=== PATIENT | male | born 1955 | race Caucasian/White ===

== ENCOUNTER 2017-09-08 12:49 | Inpatient (IN) ==
[2017-09-08] MEDS ORDERED: 0.9 % Sodium Chloride 1,000 ML IVC ONE (13:31)
[2017-09-08] MEDS ORDERED: Prochlorperazine 10 MG/2 ML VIAL IVP ONE (13:39)
--- NOTE | 2017-09-08 13:44 | Emergency Department Note ---
Disposition Clinical Impression: Generalized weakness Pneumonia Qualifiers: Pneumonia type: due to unspecified organism Laterality: left Lung location: lower lobe of lung Qualified Code(s): J18.1 - Lobar pneumonia, unspecified organism Headache Qualifiers: Headache type: unspecified Headache chronicity pattern: acute headache Intractability: not intractable Qualified Code(s): R51 - Headache Disposition: Admitted As Inpatient Condition: Good Time of Disposition: 15:53 General Adult HPI - General Chief complaint: ED Headache Stated complaint: headache, bodyaches & cramps, no energy, sob Time Seen by Provider: 09/08/17 13:05 Source: patient Limitations: no limitations Nursing Notes Reviewed: Yes Vital Signs Reviewed: Yes - History of Present Illness HPI Narrative: Patient is a 62-year-old male that presents the emergency department with a headache that is been ongoing for the past 2 weeks. Patient and family states that he has not been acting appropriately and has been mixing up his words, his speech has been different in the setting mild facial droop on the right. Patient does state that he has a history of headaches and migraines however this feels different due to the headache lasting longer than normal. The patient did try taking Tylenol for his headache but this provided minimal relief. The patient does state that he had some sort of rash or viral illness on his neck which she was prescribed an unknown medication for. He states that this has cleared up and he is still had a persistent headache. Pain Scale: 10 - Related Data Home Medications Medication Instructions Recorded Confirmed Ivermectin [Stromectol] 3 mg PO AD 09/08/17 09/08/17 Phenytoin ER [Dilantin ER] 200 mg PO BID 09/08/17 09/08/17 Allergies Allergy/AdvReac Type Severity Reaction Status Date / Time sertraline [From Zoloft] Allergy Swelling Verified 09/08/17 16:24 of the Eye All systems ED: reviewed and negative except as stated. Cardiovascular: Denies: chest pain Respiratory: Reports: dyspnea Gastrointestinal: Reports: other (distention). Denies: abdominal pain, nausea, vomiting Genitourinary: Reports: dysuria, other (dark colored urine with an odor). Denies: urgency Past Medical History - Past Medical History Medical history: Reports: seizures Psychiatric history: Reports: depression - Social History Smoking Status: Current every day smoker Smokeless Tobacco Status: No Alcohol use: Reports: none Drug use: Reports: marijuana Physical Exam - General Limitations: no limitations General appearance: alert, in no apparent distress - Head Head exam: atraumatic, normocephalic - Eye Eye exam: Present: normal appearance, EOMI - Neck Neck exam: Present: normal inspection. Absent: full ROM, trachea midline - Respiratory Respiratory exam: Present: normal lung sounds bilaterally. Absent: respiratory distress, wheezes - Cardiovascular Cardiovascular exam: Present: normal rhythm, tachycardia, normal heart sounds, + S1, +S2 - Abdominal Exam Abdominal exam: Present: soft, Non-Tender, distention (mildly), normal bowel sounds - Neurological Exam Neurological exam: Present: alert, oriented X3 - Expanded Neurological Exam Patient oriented to: Present: person, place, time Cranial nerves: EOM function (II, III, IV, ): Normal, facial sensation (V): Normal, facial palsy (VII): Abnormal Right (mild facial drop on the right), gag reflex (IX): Normal, spinal accessory function (XI): Normal, tongue deviation ( XII): Normal Cerebellar function: finger to nose: Normal, heel to godinez: Normal Motor strength - LUE: 5/5 Motor strength - RUE: 5/5 Motor strength - LLE: 5/5 Motor strength - RLE: 5/5 Upper motor neuron exam: pronator drift: Absent bilaterally Sensory exam upper extremity: light touch: Normal Sensory exam lower extremity: light touch: Normal Coma Scale Eye Opening: Spontaneous Coma Scale Motor Response: Obeys Commands Coma Scale Verbal Response: Oriented Coma Scale Total: 15 - Psychiatric Psychiatric exam: Present: normal affect, normal mood - Skin Skin exam: Present: warm, dry, intact Course Vital Signs Temperature 98.9 F 09/08/17 12:51 Pulse Rate 103 09/08/17 12:51 Respiratory Rate 20 09/08/17 12:51 Blood Pressure 142/87 09/08/17 12:51 O2 Sat by Pulse Oximetry 92 09/08/17 12:51 Temperature 99.5 F 09/08/17 15:59 Pulse Rate 91 09/08/17 14:42 Respiratory Rate 18 09/08/17 15:59 Blood Pressure 152/90 09/08/17 15:59 O2 Sat by Pulse Oximetry 93 09/08/17 14:42 Oxygen Delivery Oxygen Delivery Room Air Medical Decision Making - MDM Narrative Medical decision making narrative: Due the patient presenting with ongoing headache and reports of not acting appropriately and had some mild confusion the family and having associated right -sided facial droop we will obtain a CT of the head as well as laboratory testing. CT the head was unremarkable for acute findings. The patient did have a left lower lobe pneumonia that was seen on chest x-ray. Due to the pneumonia we will treat this patient with Rocephin and azithromycin due to the patient being from home and likely community acquired pneumonia. The patient did have a low sodium of 129. Patient will be given normal saline I do not feel that there is necessity to replace the sodium any further at this time. Urinalysis did not show any evidence of infection at this time. Based on the pneumonia in the patient's symptoms and feel that it is necessary for the patient be admitted to the hospital. I spoke with the hospitalist and he is accepted the patient to their service. The patient will be admitted to the hospital at this time for further evaluation and management. - Lab Data Lab results reviewed: Yes I reviewed the patient's lab results. Result diagrams: 09/08/17 14:06 09/08/17 14:06 Lab Results 09/08/17 09/08/17 09/08/17 Range/Units 13:55 14:06 14:06 WBC 9.5 (4.3-11.1) K/mcL RBC 4.37 (4.19-5.50) M/mcL Hgb 14.2 (12.9-16.9) g/dL Hct 40.6 (37.5-50.1) % MCV 92.9 (83.0-100.0) fL MCH 32.5 (28.0-33.3) pg MCHC 35.0 (31.6-35.5) g/dL RDW 12.2 (11.5-14.5) % Plt Count 322 (140-400) K/mcL MPV 9.0 L (9.4-12.4) fL Immature Gran % 0.8 (0-4) % Seg Neutrophils % 69.9 % Lymphocytes % 14.8 % Monocytes % 13.1 % Eosinophils % 1.0 % Basophils % 0.4 % Neutrophils # 6.6 (1.6-8.9) K/mcL Lymphocytes # 1.4 (0.6-4.6) K/mcL Monocytes # 1.2 (0.0-1.3) K/mcL Eosinophils # 0.1 (0.0-0.6) K/mcL Basophils # 0.0 (0.0-0.2) K/mcL PT 12.8 H (9.4-12.1) Seconds INR 1.2 Sodium (136-145) mEq/L Potassium (3.5-5.1) mEq/L Chloride (98-107) mEq/L Carbon Dioxide (23-29) mEq/L BUN (8-23) mg/dL Creatinine (0.70-1.30) mg/dL Est GFR ( Amer) (> 60) Est GFR (Non-Af Amer) (> 60) BUN/Creatinine Ratio (6-26) Glucose (70-105) mg/dL Calculated Osmolality (280-300) Calcium (8.6-10.3) mg/dL Total Bilirubin (0.3-1.0) mg/dL Direct Bilirubin (0.0-0.2) mg/dL Indirect Bilirubin (0.0-1.2) mg/dL AST (13-39) Units/L ALT (7-52) Units/L Alkaline Phosphatase (34-104) Units/L Ammonia (16-53) mcmol/L Troponin I (< 0.04) ng/mL Serum Total Protein (6.4-8.9) g/dL Albumin (3.5-5.7) g/dL Globulin (2.4-3.5) g/dL Albumin/Globulin Ratio (1.1-2.2) Urine Color Dark Yellow (Yellow) Urine Clarity Cloudy A (Clear) Urine pH 6.0 (5.0-8.0) pH Units Ur Specific Bigfoot 1.025 (1.010-1.025) Urine Protein 30 H (Neg-Trace) mg/dL Urine Glucose (UA) Normal (Normal) mg/dL Urine Ketones Negative (Negative) mg/dL Urine Blood Trace H (Negative) Urine Nitrite Negative (Negative) Urine Bilirubin Small H (Negative) Urine Urobilinogen Normal (Normal) mg/dL Ur Leukocyte Esterase Negative (Negative) Urine Microscopic RBC 0-3 (0-3) per hpf Urine Microscopic WBC 0-3 (0-3) per hpf Ur Squamous Epith Cells None Seen (None-Few) per lpf Urine Bacteria None Seen (None-Few) per hpf Hyaline Casts None Seen (None-Few) per lpf Ur Culture Indicated? NO (NO) 09/08/17 09/08/17 09/08/17 Range/Units 14:06 14:06 14:06 WBC (4.3-11.1) K/mcL RBC (4.19-5.50) M/mcL Hgb (12.9-16.9) g/dL Hct (37.5-50.1) % MCV (83.0-100.0) fL MCH (28.0-33.3) pg MCHC (31.6-35.5) g/dL RDW (11.5-14.5) % Plt Count (140-400) K/mcL MPV (9.4-12.4) fL Immature Gran % (0-4) % Seg Neutrophils % % Lymphocytes % % Monocytes % % Eosinophils % % Basophils % % Neutrophils # (1.6-8.9) K/mcL Lymphocytes # (0.6-4.6) K/mcL Monocytes # (0.0-1.3) K/mcL Eosinophils # (0.0-0.6) K/mcL Basophils # (0.0-0.2) K/mcL PT (9.4-12.1) Seconds INR Sodium 129 L (136-145) mEq/L Potassium 3.5 (3.5-5.1) mEq/L Chloride 96 L (98-107) mEq/L Carbon Dioxide 24 (23-29) mEq/L BUN 9 (8-23) mg/dL Creatinine 0.60 L (0.70-1.30) mg/dL Est GFR ( Amer) > 60 (> 60) Est GFR (Non-Af Amer) > 60 (> 60) BUN/Creatinine Ratio 15 (6-26) Glucose 114 H (70-105) mg/dL Calculated Osmolality 268 L (280-300) Calcium 8.7 (8.6-10.3) mg/dL Total Bilirubin 0.6 (0.3-1.0) mg/dL Direct Bilirubin 0.2 (0.0-0.2) mg/dL Indirect Bilirubin 0.4 (0.0-1.2) mg/dL AST 86 H (13-39) Units/L ALT 81 H (7-52) Units/L Alkaline Phosphatase 81 (34-104) Units/L Ammonia (16-53) mcmol/L Troponin I < 0.03 (< 0.04) ng/mL Serum Total Protein 7.2 (6.4-8.9) g/dL Albumin 3.6 (3.5-5.7) g/dL Globulin 3.6 H (2.4-3.5) g/dL Albumin/Globulin Ratio 1.0 L (1.1-2.2) Urine Color (Yellow) Urine Clarity (Clear) Urine pH (5.0-8.0) pH Units Ur Specific Bigfoot (1.010-1.025) Urine Protein (Neg-Trace) mg/dL Urine Glucose (UA) (Normal) mg/dL Urine Ketones (Negative) mg/dL Urine Blood (Negative) Urine Nitrite (Negative) Urine Bilirubin (Negative) Urine Urobilinogen (Normal) mg/dL Ur Leukocyte Esterase (Negative) Urine Microscopic RBC (0-3) per hpf Urine Microscopic WBC (0-3) per hpf Ur Squamous Epith Cells (None-Few) per lpf Urine Bacteria (None-Few) per hpf Hyaline Casts (None-Few) per lpf Ur Culture Indicated? (NO) 09/08/17 Range/Units 14:06 WBC (4.3-11.1) K/mcL RBC (4.19-5.50) M/mcL Hgb (12.9-16.9) g/dL Hct (37.5-50.1) % MCV (83.0-100.0) fL MCH (28.0-33.3) pg MCHC (31.6-35.5) g/dL RDW (11.5-14.5) % Plt Count (140-400) K/mcL MPV (9.4-12.4) fL Immature Gran % (0-4) % Seg Neutrophils % % Lymphocytes % % Monocytes % % Eosinophils % % Basophils % % Neutrophils # (1.6-8.9) K/mcL Lymphocytes # (0.6-4.6) K/mcL Monocytes # (0.0-1.3) K/mcL Eosinophils # (0.0-0.6) K/mcL Basophils # (0.0-0.2) K/mcL PT (9.4-12.1) Seconds INR Sodium (136-145) mEq/L Potassium (3.5-5.1) mEq/L Chloride (98-107) mEq/L Carbon Dioxide (23-29) mEq/L BUN (8-23) mg/dL Creatinine (0.70-1.30) mg/dL Est GFR ( Amer) (> 60) Est GFR (Non-Af Amer) (> 60) BUN/Creatinine Ratio (6-26) Glucose (70-105) mg/dL Calculated Osmolality (280-300) Calcium (8.6-10.3) mg/dL Total Bilirubin (0.3-1.0) mg/dL Direct Bilirubin (0.0-0.2) mg/dL Indirect Bilirubin (0.0-1.2) mg/dL AST (13-39) Units/L ALT (7-52) Units/L Alkaline Phosphatase (34-104) Units/L Ammonia 59 H (16-53) mcmol/L Troponin I (< 0.04) ng/mL Serum Total Protein (6.4-8.9) g/dL Albumin (3.5-5.7) g/dL Globulin (2.4-3.5) g/dL Albumin/Globulin Ratio (1.1-2.2) Urine Color (Yellow) Urine Clarity (Clear) Urine pH (5.0-8.0) pH Units Ur Specific Bigfoot (1.010-1.025) Urine Protein (Neg-Trace) mg/dL Urine Glucose (UA) (Normal) mg/dL Urine Ketones (Negative) mg/dL Urine Blood (Negative) Urine Nitrite (Negative) Urine Bilirubin (Negative) Urine Urobilinogen (Normal) mg/dL Ur Leukocyte Esterase (Negative) Urine Microscopic RBC (0-3) per hpf Urine Microscopic WBC (0-3) per hpf Ur Squamous Epith Cells (None-Few) per lpf Urine Bacteria (None-Few) per hpf Hyaline Casts (None-Few) per lpf Ur Culture Indicated? (NO) - Radiology Data Radiology results reviewed: Yes I reviewed the patient's radiology results. Head CT 09/08/17 13:37 IMPRESSION: No acute intracranial abnormality. D/ / Martinez Eckert MD / Martinez Eckert MD Interpreting Provider: Martinez Eckert MD Chest X-Ray 09/08/17 13:40 IMPRESSION: Left lower lobe pneumonia. D/ / 09/08/2017 14:36:28 Brandyn Ram MD / Ligia Neumann Interpreting Provider: Brandyn Ram MD - EKG Data EKG #1 EKG attestation: Yes I reviewed and interpreted this EKG. EKG results narrative: EKG showed a sinus rhythm at a rate of 91 bpm, SC interval of 115, qrs duration of 105, QTC of 415. No evidence of STEMI on EKG.
[2017-09-08 14:07] LABS: Bilirubin,Urine Small (Negative); Blood,Urine Trace (Negative); Clarity,Urine Cloudy (Clear); Color,Urine Dark Yellow (Yellow); Glucose,Urine (UA) Normal (Normal); Ketones,Urine Negative (Negative); Leukocyte Esterase,Urine Negative (Negative); Nitrite,Urine Negative (Negative); Protein,Urine 30 mg/dL (Neg-Trace); Specific Gravity,Urine 1.025 (1.010-1.025); Urobilinogen,Urine Normal (Normal)
[2017-09-08 14:10] LABS: Bacteria,Urine None Seen per hpf (None-Few); Hyaline Casts,Urine None Seen per lpf (None-Few); RBC,Urine 0-3 per hpf (0-3); Squamous Epithelial Cell,Urine None Seen per lpf (None-Few); WBC,Urine 0-3 per hpf (0-3)
[2017-09-08 14:18] LABS: Basophils % 0.4 %; Eosinophils # 0.1 K/mcL (0.0-0.6); Hematocrit 40.6 % (37.5-50.1); Hemoglobin 14.2 g/dL (12.9-16.9); Immature Granulocytes % 0.8 % (0-4); Lymphocytes # 1.4 K/mcL (0.6-4.6); Lymphocytes % 14.8 %; Mean Corpuscular Hemoglobin 32.5 pg (28.0-33.3); Mean Corpuscular Volume 92.9 fL (83.0-100.0); Monocytes # 1.2 K/mcL (0.0-1.3); Monocytes % 13.1 %; Neutrophils # 6.6 K/mcL (1.6-8.9); Platelet Count 322 K/mcL (140-400); Red Blood Count 4.37 M/mcL (4.19-5.50); Red Cell Distribution Width 12.2 % (11.5-14.5); Segmented Neutrophils % 69.9 %
[2017-09-08 14:23] LABS: INR 1.2; Prothrombin Time 12.8 Seconds (9.4-12.1)
[2017-09-08 14:37] LABS: Albumin 3.6 g/dL (3.5-5.7); BUN/Creatinine Ratio 15 (6-26); Bilirubin,Direct 0.2 mg/dL (0.0-0.2); Bilirubin,Indirect 0.4 mg/dL (0.0-1.2); Bilirubin,Total 0.6 mg/dL (0.3-1.0); Blood Urea Nitrogen 9 mg/dL (8-23); Calcium 8.7 mg/dL (8.6-10.3); Carbon Dioxide 24 mEq/L (23-29); Chloride 96 mEq/L (98-107); Globulin 3.6 g/dL (2.4-3.5); Glucose 114 mg/dL (70-105); Osmolality,Calculated 268 (280-300); Potassium 3.5 mEq/L (3.5-5.1); Sodium 129 mEq/L (136-145); Total Protein 7.2 g/dL (6.4-8.9); eGFR For African Americans > 60 (> 60); eGFR For Non-African Americans > 60 (> 60)
[2017-09-08] MEDS ORDERED: Azithromycin 500 MG in D5% in Water 250 ML IVPB ONE (15:07)
[2017-09-08] MEDS ORDERED: cefTRIAXone 1,000 MG in Water for inj. (sterile) 20 ML 10 ML IVP ONE (15:07)
[2017-09-08] MEDS ORDERED: Naloxone 0.4 MG/ML INJ IVP PRN (17:27)
--- NOTE | 2017-09-08 17:50 | Internal Med History&Physical ---
Date of Encounter: 09/08/17 Time of Encounter: 17:44 Internal Medicine - H&P: HPI Chief complaint: Headache Admitted From: Home Plans for Post Hospital Care: Home History of present illness: Mr. Engel is a 62 year old male with history of upper back pain, who presents with a headache for the past 2 weeks. Patient indicated he took Tylenol at home which was not effective. He also noted some weakness in his extremities, while ambulating. Facial droop noted to the right side of mouth. During neuro assessment patient strength was equal. He reported that he had a viral illness and had a rash on his neck several weeks ago was treated for a parasitic infection. He also indicated he was also having muscle aches but denied fever. Daughter in the room indicated that he had also complained of shortness of breath, the patient indicated he stopped smoking about one and half years ago. Denies any COPD diagnosis. No coughing or congestion reported. Patient hypertensive at 142/87. White blood cell count is 9.5. Sodium is 129 and will begin IV 0.9% normal saline continuous for hyponatremia likely related to dehydration. MRI ordered for tonight, neuro checks every shift. Patient was started on azithromycin and Rocephin IV. Past Med Surg Social Fam HX - Past Medical History Medical history: seizures Psychiatric history: depression - Social History Smoking Status: Current every day smoker Smokeless Tobacco Status: No Alcohol use: none Drug use: marijuana - Family History Mother Hx Family Cardiac Disorders: Yes (stroke) Internal Medicine - H&P: Meds Ivermectin [Stromectol] 3 mg PO AD 09/08/17 [History] Phenytoin ER [Dilantin ER] 200 mg PO BID 09/08/17 [History] 3 Allergy/AdvReac Type Severity Reaction Status Date / Time sertraline [From Zoloft] Allergy Swelling Verified 09/08/17 16:24 of the [facility] Systems PM: A 10-system review of systems was performed and is negative for pertinent findings except as documented above in the HPI. - Constitutional Constitutional: weakness, no chills, no fever(s), no night sweats - EENT Eyes: no change in vision, no discharge, no pain, no photophobia Ears: no ear discharge, no ear pain, no tinnitus Nose, mouth and throat: neck pain (Recent neck infection for a parasitic infection), no dysphagia, no nasal discharge, no sore throat - Cardiovascular Cardiovascular ROS IM: dyspnea, no chest pain, no diaphoresis, no lightheadedness, no palpitations, no syncope - Respiratory Respiratory: no cough, no dyspnea, no wheezing, no excessive phlegm production - Gastrointestinal Gastrointestinal: no abdominal pain, no diarrhea, no hematemesis, no hematochezia, no melena, no nausea, no vomiting - Musculoskeletal Musculoskeletal ROS IM: no numbness, no tingling - Integumentary Integumentary IM: no rash, no unusual bruising - Neurological Neurological ROS: abnormal gait, confusion, weakness, no convulsions, no focal weakness, no numbness, no tingling, no tremor(s) - Hematologic/Lymphatic Hematologic/Lymphatic: no easy bruising - Constitutional Vitals: Temp Pulse Resp BP Pulse Ox 98.9 F 102 16 146/83 96 09/08/17 17:35 09/08/17 17:35 09/08/17 17:35 09/08/17 17:35 09/08/17 17:35 General appearance: Present: A&O X 3, answers questions appropriately - Head Head exam: Present: atraumatic, normocephalic - Eye Eye exam: Present: PERRL, conjuntiva pink, sclera anicteric Pupils: Present: PERRL - Neck Neck exam general surgery: Present: normal inspection, tenderness (recent rash ) , supple, trachea midline. Absent: lymphadenopathy - Respiratory Respiratory exam: Present: CTAB. Absent: accessory muscle use, rales, rhonchi, wheezes - Cardiovascular Cardiovascular exam: Present: RRR, +S1, +S2. Absent: diastolic murmur, gallop, rubs, systolic murmur - GI/Abdominal GI/Abdominal exam: Present: normal bowel sounds, soft, no peritoneal signs. Absent: distended, tenderness - Extremities Exam Extremities exam: Present: warm, radial pulses palpable and symmetrical. Absent : calf tenderness, cyanotic, pedal edema - Neurological Exam Neurological exam: Present: CN II-XII intact, oriented X3, no focal deficits. Absent: pronater drift, facial droop, speech deficit - Skin Skin exam: Present: dry, intact Internal Med - H&P Results - Labs CBC & Chem 7: 09/08/17 14:06 09/08/17 14:06 - Assessment and plan (1) Pneumonia Current Visit: Yes Status: Acute Assessment and plan: The patient denies cough, chest pain, and congestion. He does report that he has had some dyspnea off and on. Will treat with azithromycin and rocephin. IVF' s, Qualifiers: Pneumonia type: due to unspecified organism Laterality: left Lung location: lower lobe of lung Qualified Code(s): J18.1 - Lobar pneumonia, unspecified organism (2) Headache Current Visit: Yes Status: Acute Assessment and plan: Patient has had a headache off and on for the past 2 weeks. Tylenol ineffective at home. CT scan completed showed no acute abnormality and MRI of head ordered. Qualifiers: Headache type: unspecified Headache chronicity pattern: acute headache Intractability: not intractable Qualified Code(s): R51 - Headache (3) Generalized weakness Current Visit: Yes Status: Acute Assessment and plan: Patient has had a headache off and on for the past 2 weeks. Tylenol ineffective at home. CT scan completed showed no acute abnormality and MRI of head ordered. Neuro checks every shift - Time Spent With Patient Total time spent is greater than 50% in coordination of care (as documented) at patient's floor/unit and/or counseling patient:
[2017-09-08] MEDS: 0.9 % Sodium Chloride 1,000 ML IVC SCH (18:23)
--- NOTE | 2017-09-08 19:30 | Emergency Department Note ---
Disposition Clinical Impression: Generalized weakness Pneumonia Qualifiers: Pneumonia type: due to unspecified organism Laterality: left Lung location: lower lobe of lung Qualified Code(s): J18.1 - Lobar pneumonia, unspecified organism Headache Qualifiers: Headache type: unspecified Headache chronicity pattern: acute headache Intractability: not intractable Qualified Code(s): R51 - Headache Disposition: Admitted As Inpatient Condition: Good General Adult HPI - General Chief complaint: ED Headache Stated complaint: headache, bodyaches & cramps, no energy, sob Time Seen by Provider: 09/08/17 13:05 Source: patient Limitations: no limitations - History of Present Illness Pain Scale: 10 - Related Data Home Medications Medication Instructions Recorded Confirmed Ivermectin [Stromectol] 3 mg PO AD 09/08/17 09/08/17 Phenytoin ER [Dilantin ER] 200 mg PO BID 09/08/17 09/08/17 Allergies Allergy/AdvReac Type Severity Reaction Status Date / Time sertraline [From Zoloft] Allergy Swelling Verified 09/08/17 16:24 of the Eye Cardiovascular: Denies: chest pain Respiratory: Reports: dyspnea Gastrointestinal: Reports: other (distention). Denies: abdominal pain, nausea, vomiting Genitourinary: Reports: dysuria, other (dark colored urine with an odor). Denies: urgency Past Medical History - Past Medical History Medical history: Reports: seizures Psychiatric history: Reports: depression - Social History Smoking Status: Current every day smoker Smokeless Tobacco Status: No Alcohol use: Reports: none Drug use: Reports: marijuana Physical Exam - General Limitations: no limitations General appearance: alert, in no apparent distress Course Vital Signs Temperature 98.9 F 09/08/17 12:51 Pulse Rate 103 09/08/17 12:51 Respiratory Rate 20 09/08/17 12:51 Blood Pressure 142/87 09/08/17 12:51 O2 Sat by Pulse Oximetry 92 09/08/17 12:51 Temperature 98.9 F 09/08/17 18:54 Pulse Rate 80 09/08/17 18:54 Respiratory Rate 16 09/08/17 18:54 Blood Pressure 123/69 09/08/17 18:54 O2 Sat by Pulse Oximetry 95 09/08/17 18:54 Oxygen Delivery Oxygen Delivery Room Air Medical Decision Making - Lab Data Result diagrams: 09/08/17 14:06 09/08/17 14:06 Lab Results 09/08/17 09/08/17 09/08/17 Range/Units 13:55 14:06 14:06 WBC 9.5 (4.3-11.1) K/mcL RBC 4.37 (4.19-5.50) M/mcL Hgb 14.2 (12.9-16.9) g/dL Hct 40.6 (37.5-50.1) % MCV 92.9 (83.0-100.0) fL MCH 32.5 (28.0-33.3) pg MCHC 35.0 (31.6-35.5) g/dL RDW 12.2 (11.5-14.5) % Plt Count 322 (140-400) K/mcL MPV 9.0 L (9.4-12.4) fL Immature Gran % 0.8 (0-4) % Seg Neutrophils % 69.9 % Lymphocytes % 14.8 % Monocytes % 13.1 % Eosinophils % 1.0 % Basophils % 0.4 % Neutrophils # 6.6 (1.6-8.9) K/mcL Lymphocytes # 1.4 (0.6-4.6) K/mcL Monocytes # 1.2 (0.0-1.3) K/mcL Eosinophils # 0.1 (0.0-0.6) K/mcL Basophils # 0.0 (0.0-0.2) K/mcL PT 12.8 H (9.4-12.1) Seconds INR 1.2 Sodium (136-145) mEq/L Potassium (3.5-5.1) mEq/L Chloride (98-107) mEq/L Carbon Dioxide (23-29) mEq/L BUN (8-23) mg/dL Creatinine (0.70-1.30) mg/dL Est GFR ( Amer) (> 60) Est GFR (Non-Af Amer) (> 60) BUN/Creatinine Ratio (6-26) Glucose (70-105) mg/dL Calculated Osmolality (280-300) Calcium (8.6-10.3) mg/dL Total Bilirubin (0.3-1.0) mg/dL Direct Bilirubin (0.0-0.2) mg/dL Indirect Bilirubin (0.0-1.2) mg/dL AST (13-39) Units/L ALT (7-52) Units/L Alkaline Phosphatase (34-104) Units/L Ammonia (16-53) mcmol/L Troponin I (< 0.04) ng/mL Serum Total Protein (6.4-8.9) g/dL Albumin (3.5-5.7) g/dL Globulin (2.4-3.5) g/dL Albumin/Globulin Ratio (1.1-2.2) Urine Color Dark Yellow (Yellow) Urine Clarity Cloudy A (Clear) Urine pH 6.0 (5.0-8.0) pH Units Ur Specific [place] 1.025 (1.010-1.025) Urine Protein 30 H (Neg-Trace) mg/dL Urine Glucose (UA) Normal (Normal) mg/dL Urine Ketones Negative (Negative) mg/dL Urine Blood Trace H (Negative) Urine Nitrite Negative (Negative) Urine Bilirubin Small H (Negative) Urine Urobilinogen Normal (Normal) mg/dL Ur Leukocyte Esterase Negative (Negative) Urine Microscopic RBC 0-3 (0-3) per hpf Urine Microscopic WBC 0-3 (0-3) per hpf Ur Squamous Epith Cells None Seen (None-Few) per lpf Urine Bacteria None Seen (None-Few) per hpf Hyaline Casts None Seen (None-Few) per lpf Ur Culture Indicated? NO (NO) 09/08/17 09/08/17 09/08/17 Range/Units 14:06 14:06 14:06 WBC (4.3-11.1) K/mcL RBC (4.19-5.50) M/mcL Hgb (12.9-16.9) g/dL Hct (37.5-50.1) % MCV (83.0-100.0) fL MCH (28.0-33.3) pg MCHC (31.6-35.5) g/dL RDW (11.5-14.5) % Plt Count (140-400) K/mcL MPV (9.4-12.4) fL Immature Gran % (0-4) % Seg Neutrophils % % Lymphocytes % % Monocytes % % Eosinophils % % Basophils % % Neutrophils # (1.6-8.9) K/mcL Lymphocytes # (0.6-4.6) K/mcL Monocytes # (0.0-1.3) K/mcL Eosinophils # (0.0-0.6) K/mcL Basophils # (0.0-0.2) K/mcL PT (9.4-12.1) Seconds INR Sodium 129 L (136-145) mEq/L Potassium 3.5 (3.5-5.1) mEq/L Chloride 96 L (98-107) mEq/L Carbon Dioxide 24 (23-29) mEq/L BUN 9 (8-23) mg/dL Creatinine 0.60 L (0.70-1.30) mg/dL Est GFR ( Amer) > 60 (> 60) Est GFR (Non-Af Amer) > 60 (> 60) BUN/Creatinine Ratio 15 (6-26) Glucose 114 H (70-105) mg/dL Calculated Osmolality 268 L (280-300) Calcium 8.7 (8.6-10.3) mg/dL Total Bilirubin 0.6 (0.3-1.0) mg/dL Direct Bilirubin 0.2 (0.0-0.2) mg/dL Indirect Bilirubin 0.4 (0.0-1.2) mg/dL AST 86 H (13-39) Units/L ALT 81 H (7-52) Units/L Alkaline Phosphatase 81 (34-104) Units/L Ammonia (16-53) mcmol/L Troponin I < 0.03 (< 0.04) ng/mL Serum Total Protein 7.2 (6.4-8.9) g/dL Albumin 3.6 (3.5-5.7) g/dL Globulin 3.6 H (2.4-3.5) g/dL Albumin/Globulin Ratio 1.0 L (1.1-2.2) Urine Color (Yellow) Urine Clarity (Clear) Urine pH (5.0-8.0) pH Units Ur Specific [place] (1.010-1.025) Urine Protein (Neg-Trace) mg/dL Urine Glucose (UA) (Normal) mg/dL Urine Ketones (Negative) mg/dL Urine Blood (Negative) Urine Nitrite (Negative) Urine Bilirubin (Negative) Urine Urobilinogen (Normal) mg/dL Ur Leukocyte Esterase (Negative) Urine Microscopic RBC (0-3) per hpf Urine Microscopic WBC (0-3) per hpf Ur Squamous Epith Cells (None-Few) per lpf Urine Bacteria (None-Few) per hpf Hyaline Casts (None-Few) per lpf Ur Culture Indicated? (NO) 09/08/17 Range/Units 14:06 WBC (4.3-11.1) K/mcL RBC (4.19-5.50) M/mcL Hgb (12.9-16.9) g/dL Hct (37.5-50.1) % MCV (83.0-100.0) fL MCH (28.0-33.3) pg MCHC (31.6-35.5) g/dL RDW (11.5-14.5) % Plt Count (140-400) K/mcL MPV (9.4-12.4) fL Immature Gran % (0-4) % Seg Neutrophils % % Lymphocytes % % Monocytes % % Eosinophils % % Basophils % % Neutrophils # (1.6-8.9) K/mcL Lymphocytes # (0.6-4.6) K/mcL Monocytes # (0.0-1.3) K/mcL Eosinophils # (0.0-0.6) K/mcL Basophils # (0.0-0.2) K/mcL PT (9.4-12.1) Seconds INR Sodium (136-145) mEq/L Potassium (3.5-5.1) mEq/L Chloride (98-107) mEq/L Carbon Dioxide (23-29) mEq/L BUN (8-23) mg/dL Creatinine (0.70-1.30) mg/dL Est GFR ( Amer) (> 60) Est GFR (Non-Af Amer) (> 60) BUN/Creatinine Ratio (6-26) Glucose (70-105) mg/dL Calculated Osmolality (280-300) Calcium (8.6-10.3) mg/dL Total Bilirubin (0.3-1.0) mg/dL Direct Bilirubin (0.0-0.2) mg/dL Indirect Bilirubin (0.0-1.2) mg/dL AST (13-39) Units/L ALT (7-52) Units/L Alkaline Phosphatase (34-104) Units/L Ammonia 59 H (16-53) mcmol/L Troponin I (< 0.04) ng/mL Serum Total Protein (6.4-8.9) g/dL Albumin (3.5-5.7) g/dL Globulin (2.4-3.5) g/dL Albumin/Globulin Ratio (1.1-2.2) Urine Color (Yellow) Urine Clarity (Clear) Urine pH (5.0-8.0) pH Units Ur Specific [place] (1.010-1.025) Urine Protein (Neg-Trace) mg/dL Urine Glucose (UA) (Normal) mg/dL Urine Ketones (Negative) mg/dL Urine Blood (Negative) Urine Nitrite (Negative) Urine Bilirubin (Negative) Urine Urobilinogen (Normal) mg/dL Ur Leukocyte Esterase (Negative) Urine Microscopic RBC (0-3) per hpf Urine Microscopic WBC (0-3) per hpf Ur Squamous Epith Cells (None-Few) per lpf Urine Bacteria (None-Few) per hpf Hyaline Casts (None-Few) per lpf Ur Culture Indicated? (NO) Attestation Statement - Attestation Attestation: I examined this patient and my medical decision-making was reviewed with the Resident Physician, Dr. tomlinson. I agree with the documented findings, disposition and treatment plan as described except to the extent set forth below. Patient is a 62-year-old white male who is brought in by his family today for evaluation of gradually worsening generalized weakness over the past 2 weeks associated with intermittent generalized headaches, gradually worsening shortness of breath and an occasional cough. Patient is a smoker but no known history of COPD. On arrival he was initially hypoxic on room air placed on nasal cannula oxygen. He was also reported that he was recently treated for a parasitic infection that involved a rash that was located on his neck associated with some discomfort. Patient has since completed a regimen of ivermectin. Here on presentation patient has a very slight return to the corner of his lip, does not appear consistent with a complete facial droop or nasolabial fold flattening just a little turned down at the corner of the lip that is easy to miss on assessment. Patient has clear speech no focal neuro deficits no dizziness or vertigo no other abnormalities on neurologic exam. Family state they noticed this as well but that it has been there for weeks. Patient has no history of falls or trauma. Agree with patient's physical exam findings as documented. Vital signs are stable on arrival. EKG was unremarkable for any acute ischemia or arrhythmia. Patient was sent for CT noncontrast of the head which was unremarkable. Patient's labs show mild hyponatremia and did receive IV fluids in the ED. Patient with a chest x-ray that shows lower lobe pneumonia. Patient was started on IV antibiotics for the pneumonia which could explain his generalize weakness over the past few weeks and now cough with shortness of breath. Here patient's neurologic exam is been stable over time with a normal head CT. Recommendation is admission for further evaluation and treatment of pneumonia, serial neurologic exam of possible MR for reported confusional state as well as slight droop to the coronary the mouth. IV fluids were administered for mild hyponatremia likely due to decreased by mouth intake. Patient is hemodynamically stable and case was discussed with the hospitalist to accept the patient for admission for further evaluation and treatment.
[2017-09-08] MEDS ORDERED: Ibuprofen 600 MG TABLET PO ONE (23:22)
[2017-09-09] MEDS ORDERED: Acetaminophen 325 MG TABLET PO PRN (04:00)
[2017-09-09 05:13] LABS: Hematocrit 37.7 % (37.5-50.1); Hemoglobin 12.8 g/dL (12.9-16.9); Mean Corpuscular Hemoglobin 32.1 pg (28.0-33.3); Mean Corpuscular Volume 94.5 fL (83.0-100.0); Mean Platelet Volume 9.1 fL (9.4-12.4); Platelet Count 355 K/mcL (140-400); Red Blood Count 3.99 M/mcL (4.19-5.50); Red Cell Distribution Width 12.2 % (11.5-14.5)
[2017-09-09 05:31] LABS: BUN/Creatinine Ratio 14 (6-26); Blood Urea Nitrogen 7 mg/dL (8-23); Calcium 7.9 mg/dL (8.6-10.3); Carbon Dioxide 25 mEq/L (23-29); Chloride 105 mEq/L (98-107); Glucose 102 mg/dL (70-105); Osmolality,Calculated 280 (280-300); Potassium 3.9 mEq/L (3.5-5.1); Sodium 136 mEq/L (136-145); eGFR For African Americans > 60 (> 60); eGFR For Non-African Americans > 60 (> 60)
[2017-09-09] MEDS: cefTRIAXone 2,000 MG in Water for inj. (sterile) 20 ML 20 ML IVP SCH ×2 (05:35→18:04)
[2017-09-09] MEDS: 0.9 % Sodium Chloride 1,000 ML IVC SCH (09:04)
--- NOTE | 2017-09-09 13:00 | Internal Med Progress Note ---
Date of Encounter: 09/09/17 Time of Encounter: 13:23 - Assessment and plan (1) Headache Current Visit: Yes Status: Acute Assessment and plan: Presented with a headache that started approximately 2 weeks prior to arrival associated blurred vision at times. Head CT negative. Brain MRI without evidence of infarct. Possibly secondary to chemical exposure as patient reports he has been using multiple cleaning products to get rid of bed bugs at home. Neurologically intact, no red flags/warning signs associated with headache. Trial headache cocktail. Qualifiers: Headache type: unspecified Headache chronicity pattern: acute headache Intractability: not intractable Qualified Code(s): R51 - Headache (2) Pneumonia Current Visit: Yes Status: Acute Assessment and plan: CXR with LLL pneumonia. Cont ceftriaxone, azithromycin. Urinary antigens, respiratory PCR pending Qualifiers: Pneumonia type: due to unspecified organism Laterality: left Lung location: lower lobe of lung Qualified Code(s): J18.1 - Lobar pneumonia, unspecified organism (3) Generalized weakness Current Visit: Yes Status: Acute Assessment and plan: per patient report. Etiology unknown at this time. Ambulating ad henrik without assistive device. No extremity weakness apparent. Continue to monitor for now. Supportive care. Continue neuro checks (4) TBI (traumatic brain injury) Current Visit: Yes Status: Acute Assessment and plan: per patient reported hx. suspect this may be playing a role in his multiple complaints. Head CT, brain MRI unremarkable. Qualifiers: Encounter type: sequela Qualified Code(s): S06.9X0S - Unspecified intracranial injury without loss of consciousness, sequela (5) DVT prophylaxis Current Visit: Yes Status: Acute Assessment and plan: heparin - Time Spent With Patient Total time spent is greater than 50% in coordination of care (as documented) at patient's floor/unit and/or counseling patient: - Subjective Interval history: Seen and examined at bedside. Patient is new to me, information obtained from chart review patient report. Patient reports persistent headache. Located to forehead/scalp and described as a burning sensation with associated blurred and double vision that time. He also tells me that he has been dealing with bedbugs at home and is using multiple chemicals to try to get rid of them. Says he recently got over a rash on his on his neck. He is tearful and says he feels like he is going to . - Constitutional Vitals: Temp Pulse Resp BP Pulse Ox 98.8 F 91 16 139/80 94 09/09/17 11:55 09/09/17 11:55 09/09/17 11:55 09/09/17 11:55 09/09/17 11:55 General appearance: Present: A&O X 3, no acute distress, answers questions appropriately - Head Head exam: Present: atraumatic, normocephalic - Eye Eye exam: Present: PERRL, conjuntiva pink, sclera anicteric Pupils: Present: PERRL - Neck Neck exam general surgery: Present: supple, trachea midline. Absent: lymphadenopathy - Respiratory Respiratory exam: Present: CTAB. Absent: accessory muscle use, rales, rhonchi, wheezes - Cardiovascular Cardiovascular exam: Present: RRR, +S1, +S2. Absent: diastolic murmur, gallop, rubs, systolic murmur - GI/Abdominal GI/Abdominal exam: Present: normal bowel sounds, soft, no peritoneal signs. Absent: distended, tenderness - Extremities Exam Extremities exam: Present: warm, radial pulses palpable and symmetrical. Absent : calf tenderness, cyanotic, pedal edema - Neurological Exam Neurological exam: Present: CN II-XII intact, oriented X3, no focal deficits. Absent: pronater drift, facial droop, speech deficit - Skin Skin exam: Present: dry, intact Internal Medicine: Result - Labs CBC & Chem 7: 09/09/17 03:41 09/09/17 03:41 Labs: Short CBC 09/09/17 Range/Units 03:41 WBC 7.7 (4.3-11.1) K/mcL Hgb 12.8 L (12.9-16.9) g/dL Hct 37.7 (37.5-50.1) % Plt Count 355 (140-400) K/mcL BMP 09/09/17 03:41 Sodium 136 Potassium 3.9 Chloride 105 Carbon Dioxide 25 BUN 7 L Creatinine 0.51 L Glucose 102 Calcium 7.9 L Cardiac Enzymes 09/08/17 09/09/17 Range/Units 20:30 03:41 Troponin I < 0.03 < 0.03 (< 0.04) ng/mL - ABG Interpretation ABG results: PT/INR, D-dimer PT 12.8 Seconds (9.4-12.1) H 09/08/17 14:06 - Impressions Impressions Brain MRI 09/08/17 17:41 IMPRESSION: No acute infarct. D/ / Venkat Ballard MD / Venkat Ballard MD Interpreting Provider: Venkat Ballard MD Consult Discharge Plan - Plan Referrals: Akira Pelayo MD [Primary Care Provider] -
[2017-09-09] MEDS ORDERED: Isovue-370 500 ML INFUS..BTL IV ONE (13:02)
[2017-09-09] MEDS ORDERED: Ketorolac 30 MG/ML VIAL IVP ONE (13:55)
[2017-09-09] MEDS ORDERED: Metoclopramide 10 MG/2 ML VIAL IVP ONE (13:55)
[2017-09-09] MEDS: *HR* Heparin 5,000 UNIT/ML VIAL SQ SCH ×2 (15:09→21:28)
[2017-09-09 16:29] LABS: Adenovirus Not Detected (Not Detect); Bordetella Pertussis Not Detected (Not Detect); Chlamydophila pneumoniae Not Detected (Not Detect); Coronavirus 229E Not Detected (Not Detect); Coronavirus HKU1 Not Detected (Not Detect); Coronavirus NL63 Not Detected (Not Detect); Coronavirus OC43 Not Detected (Not Detect); Human Metapneumovirus Not Detected (Not Detect); Human Rhinovirus/Enterovirus Not Detected (Not Detect); Influenza A Subtype 2009 H1 Not Detected (Not Detect); Influenza A Untypeable Not Detected (Not Detect); Influenza B Not Detected (Not Detect); Mycoplasma pneumoniae Not Detected (Not Detect); Parainfluenza Virus 1 Not Detected (Not Detect); Parainfluenza Virus 2 Not Detected (Not Detect); Parainfluenza Virus 3 Not Detected (Not Detect); Parainfluenza Virus 4 Not Detected (Not Detect); Respiratory Syncytial Virus Not Detected (Not Detect)
[2017-09-09] MEDS ORDERED: Azithromycin 500 MG in D5% in Water 250 ML IVPB SCH (19:00)
[2017-09-10] MEDS: *HR* Heparin 5,000 UNIT/ML VIAL SQ SCH (05:34)
[2017-09-10] MEDS: cefTRIAXone 2,000 MG in Water for inj. (sterile) 20 ML 20 ML IVP SCH (05:34)
[2017-09-10 07:57] LABS: BUN/Creatinine Ratio 15 (6-26); Blood Urea Nitrogen 8 mg/dL (8-23); Calcium 8.2 mg/dL (8.6-10.3); Carbon Dioxide 28 mEq/L (23-29); Chloride 105 mEq/L (98-107); Glucose 100 mg/dL (70-105); Osmolality,Calculated 282 (280-300); Potassium 4.3 mEq/L (3.5-5.1); Sodium 137 mEq/L (136-145); eGFR For African Americans > 60 (> 60); eGFR For Non-African Americans > 60 (> 60)
[2017-09-10 08:28] LABS: Hematocrit 36.7 % (37.5-50.1); Hemoglobin 12.2 g/dL (12.9-16.9); Mean Corpuscular HGB Conc 33.2 g/dL (31.6-35.5); Mean Corpuscular Hemoglobin 31.9 pg (28.0-33.3); Mean Corpuscular Volume 95.8 fL (83.0-100.0); Mean Platelet Volume 9.1 fL (9.4-12.4); Platelet Count 417 K/mcL (140-400); Red Blood Count 3.83 M/mcL (4.19-5.50); Red Cell Distribution Width 12.2 % (11.5-14.5)
[2017-09-10] MEDS ORDERED: SUMAtriptan 6 MG/0.5 ML SQ ONE (10:26)
[2017-09-10 11:32] VITALS: BP 154/92
--- NOTE | 2017-09-10 11:56 | Discharge Summary ---
- NOTES TO OUTPATIENT PROVIDER Notes to Outpatient Provider: Follow-up to resolution of pneumonia recommended. Date of Encounter: 09/10/17 Time of Encounter: 11:51 - Discharge Diagnosis (1) Headache Priority: Primary Status: Acute Assessment and Plan: Presented with a headache that started approximately 2 weeks prior to arrival associated blurred vision at times. Head CT negative. Brain MRI without evidence of infarct. Possibly secondary to chemical exposure as patient reports he has been using multiple cleaning products to get rid of bed bugs at home. Neurologically intact, no red flags/warning signs associated with headache. Headache improved with headache cocktail. Discharge home on PRN imitrex. Qualifiers: Headache type: unspecified Headache chronicity pattern: acute headache Intractability: not intractable Qualified Code(s): R51 - Headache (2) Pneumonia Priority: Primary Status: Acute Assessment and Plan: of unspecified organism. Chest CTA with LLL bronchopneumonia. Urinary antigens , respiratory PCR pending. Received 2 doses IV ceftriaxone and azithromycin. Afebrile, no elevated to WBC, no cough. Overall clinically improved. De- escalate ATB to Levaquin at discharge from disease to complete a total course of 7 days). Follow-up to resolution recommended Qualifiers: Pneumonia type: due to unspecified organism Laterality: left Lung location: lower lobe of lung Qualified Code(s): J18.1 - Lobar pneumonia, unspecified organism (3) Generalized weakness Priority: Primary Status: Acute Assessment and Plan: per patient report. Ambulating ad henrik without assistive device. No extremity weakness. Neurologically intact, no focal deficit. Likely secondary to pneumonia. Improved to baseline at discharge. (4) Seizure Priority: Secondary Status: Chronic Assessment and Plan: per hx. Cont home dilantin (5) TBI (traumatic brain injury) Priority: Primary Status: Acute Assessment and Plan: per patient reported hx. Head CT, brain MRI unremarkable. Qualifiers: Encounter type: sequela Qualified Code(s): S06.9X0S - Unspecified intracranial injury without loss of consciousness, sequela Hospital course: Please see assessment and plan for Hospital course Discharge discussed with: patient (Seen and examined at bedside. Says he feels better and would like to go home if possible. No fever or cough. Has a little bit a headache. Said headache cocktail helped yesterday. He would like to try a dose of Imitrex before he leaves. ) - Time Spent with Patient Total time spent providing and/or coordinating discharge services: - Discharge Medications Prescriptions: Levofloxacin [Levaquin] 750 mg PO DAILY #5 tablet SUMAtriptan succinate [Imitrex] 50 mg PO DAILY PRN #10 tablet PRN Reason: Headache Home Medications: Ivermectin [Stromectol] 3 mg PO AD 09/08/17 [History] Phenytoin ER [Dilantin ER] 200 mg PO BID 09/08/17 [History] Levofloxacin [Levaquin] 750 mg PO DAILY #5 tablet 09/10/17 [Rx] SUMAtriptan succinate [Imitrex] 50 mg PO DAILY PRN #10 tablet 09/10/17 [Rx] Allergies/Adverse Reactions: 3 Allergy/AdvReac Type Severity Reaction Status Date / Time sertraline [From Zoloft] Allergy Swelling Verified 09/08/17 16:24 of the Eye Date of admission: 09/08/17 17:35 Primary care physician: Akira Pelayo MD Discharging clinician: Marsha Aguilera Anticipated date of discharge: 09/10/17 - Constitutional Vitals: Temp Pulse Resp BP Pulse Ox 99.1 F 88 16 154/92 100 09/10/17 11:30 09/10/17 11:30 09/10/17 11:30 09/10/17 11:30 09/10/17 11:30 General appearance: Present: A&O X 3, no acute distress, answers questions appropriately - Head Head exam: Present: atraumatic, normocephalic - Eye Eye exam: Present: PERRL, conjuntiva pink, sclera anicteric Pupils: Present: PERRL - Neck Neck exam general surgery: Present: supple, trachea midline. Absent: lymphadenopathy - Respiratory Respiratory exam: Present: CTAB. Absent: accessory muscle use, rales, rhonchi, wheezes - Cardiovascular Cardiovascular exam: Present: RRR, +S1, +S2. Absent: diastolic murmur, gallop, rubs, systolic murmur - GI/Abdominal GI/Abdominal exam: Present: normal bowel sounds, soft, no peritoneal signs. Absent: distended, tenderness - Extremities Exam Extremities exam: Present: warm, radial pulses palpable and symmetrical. Absent : calf tenderness, cyanotic, pedal edema - Neurological Exam Neurological exam: Present: CN II-XII intact, oriented X3, no focal deficits. Absent: pronater drift, facial droop, speech deficit - Skin Skin exam: Present: dry, intact - Patient Status Disposition: Home, Self-Care Condition: Good Functional capacity at discharge: independent ambulation Overall status at discharge: patient is back to baseline - Discharge Instructions Instructions: Levofloxacin (By mouth), Sumatriptan (By mouth), Pneumonia (DC) Follow Up With: Akira Pelayo MD [Primary Care Provider] - (Please call for follow-up appointment within 7-10 days) - Diet and Activity Activity: increase activity as tolerated Diet: advance to your usual diet
--- NOTE | 2017-09-11 16:08 | Electrocardiograph Report ---
[address] [address] Test Date: 2017-09-08 Pat Name: Aris Engel Department: 102 Room: 3B22 Gender: M [employer]: : [id number] Requested By: [id number] Order Number: [id number] Reading MD: Eugene Mccullough Measurements Intervals [place] Rate: 91 P: 47 CO: 115 QRS: -39 QRSD: 105 T: 15 QT: 366 QTc: 415 Interpretive Statements SINUS RHYTHM WITH SHORT CO INTERVAL MARKED LEFT AXIS DEVIATION [QRS AXIS < -30] Electronically Signed On 09-11-2017 16:06:41 EDT by Eugene Mccullough
== END 2017-09-10 13:07 | disposition home or self-care (01) | DRG 194 ==
LOC: EMEROO 12:49 → 3BNU 12:49
PROVIDERS: ADMIT Nurse Practitioner; ATTEND Nurse Practitioner